=== PATIENT | female | born 1980 | race Two or more races ===

== ENCOUNTER 2016-10-04 21:53 | Emergency (ER) | payer BC, OTHER ==
[~2016-10-04] VITALS: Ht 162.6 cm; Wt 83.9 kg
[2016-10-04] MEDS ORDERED: ALBUTEROL FS 2.5 MG/3 ML VIAL.NEB ONE (22:20)
[2016-10-04] MEDS ORDERED: ALBUTEROL FS 2.5 MG/0.5 ML VIAL.NEB NEB ONE (22:30)
[2016-10-04 22:53] VITALS: BP 127/91
== END 2016-10-04 23:08 | disposition home or self-care (01) ==
LOC: ER 21:58
DX: J45.909 Unspecified asthma, uncomplicated (principal)
CPT/HCPCS: A4606; Z7610